=== PATIENT | female | born 1990 | race Caucasian/White ===

== ENCOUNTER 2017-09-24 08:09 | Emergency (ER) | payer OTHER, MEDICAID ==
[~2017-09-24] VITALS: Ht 157.5 cm; Wt 54.4 kg
[~2017-09-24 08:09] MED LIST: ACETAMINOPHEN-1 EAC1 PO; KEFLEX500 MG PO; MACROBID 100 M100 M1 PO; PENICILLIN VK250 MG PO; PRENATAL; STOOL SOFTENER50 MG; ZOLOFT25 MG PO
[2017-09-24 08:18] VITALS: BP 110/67
[2017-09-24] MEDS ORDERED: AMOXICILLIN 50500 MG PO (08:46)
== END 2017-09-24 08:51 | disposition home or self-care (01) ==
LOC: M.ERS 08:09
DX: J02.9 Acute pharyngitis, unspecified (principal); F32.9 Major depressive disorder, single episode, unspecified